=== PATIENT | female | born 1935 | race Hispanic/Latino ===

== ENCOUNTER 2018-03-04 14:24 | Observation (INO) | payer MEDICARE ==
--- NOTE | 2018-03-04 14:51 | ED PDOC ---
HPI: General Adult Time Seen by Provider: 03/04/18 14:28 Chief Complaint (Nursing): Weakness/Neurological Deficit Chief Complaint (Provider): Weakness History Per: Patient History/Exam Limitations: no limitations Additional Complaint(s): 82 year old female presents to the ED via EMS from the urgent care for a low heart rate of 39. Patient states for the last week, she has been feeling generalized weakness and lightheadedness. Denies CP or SOB. She state she took her vitals at home and had a blood pressure of 144/60 and heart rate of 42 prompting urgent care visit from which she was transferred to this ED. Patient indicates she had blood work done on Feb 26 and everything was normal. She also brought paperwork from vitals which were taken on Feb 24 indicated pulse was 40. She reports her heart rate fluctuates. Patient takes amlodipine and HCTZ. PMD: in [facility] Past Medical History Reviewed: Historical Data, Nursing Documentation, Vital Signs Vital Signs: Last Vital Signs Temp 98.4 F 03/04/18 14:27 Pulse 76 03/04/18 15:03 Resp 20 03/04/18 14:27 BP 140/99 H 03/04/18 14:27 Pulse Ox 98 03/04/18 15:03 - Medical History PMH: HTN, Hypercholesterolemia - Surgical History Surgical History: No Surg Hx - Family History Family History: States: Unknown Family Hx - Social History Current smoker - smoking cessation education provided: No Alcohol: None Drugs: Denies - Allergies Allergies/Adverse Reactions: Allergies Allergy/AdvReac Type Severity Reaction Status Date / Time ciprofloxacin [From Cipro] Allergy RASH Verified 03/04/18 14:27 nitrofurantoin Allergy RASH Verified 03/04/18 14:27 [From Macrobid] Review of Systems ROS Statement: Except As Marked, All Systems Reviewed And Found Negative Constitutional: Positive for: Weakness Cardiovascular: Negative for: Chest Pain Respiratory: Negative for: Shortness of Breath Neurological: Positive for: Other (Mild light headedness) Physical Exam - Reviewed Nursing Documentation Reviewed: Yes Vital Signs Reviewed: Yes - Physical Exam Appears: Positive for: Non-toxic, No Acute Distress Head Exam: Positive for: ATRAUMATIC, NORMOCEPHALIC Skin: Positive for: Normal Color, Warm, Dry Eye Exam: Positive for: Normal appearance Neck: Positive for: Normal, Painless ROM Cardiovascular/Chest: Positive for: Regular Rate, Rhythm. Negative for: Murmur Respiratory: Positive for: Normal Breath Sounds. Negative for: Wheezing, Respiratory Distress Extremity: Positive for: Normal ROM Neurologic/Psych: Positive for: Alert, Oriented. Negative for: Motor/Sensory Deficits - Laboratory Results Result Diagrams: 03/04/18 14:52 03/04/18 14:52 - ECG ECG Rhythm: Positive for: Sinus Rhythm (normal), Premature Ventricular Contraction. Negative for: ST/T Changes Rate: 76 O2 Sat by Pulse Oximetry: 98 (RA) Pulse Ox Interpretation: Normal Medical Decision Making Medical Decision Making: Initial Impression: Generalized weakness Initial Plan: --ECG --CMP --TSH --Troponin --ED urine dipstick --CBC --PTT --Prothrombin time --Chest X-ray --Urinalysis Accession No. : [id number] Patient Name / ID : ATIYA Cueva / [id number] Exam Date : 03/04/2018 14:36:19 ( Approved ) Study Comment : Sex / Age : F / 82Y Creator : Abhi Westbrook MD Dictator : Abhi Westbrook MD Site Acquisition Specialist : Mobile Therapist : Abhi Westbrook MD Approver2 : Report Date : 03/04/2018 14:59:34 My Comment : Date of service: 03/04/2018 HISTORY: Bradycardia COMPARISON: No prior. FINDINGS: LUNGS: Hypoventilatory changes are seen at the lung paul as well as mild interstitial change. Retrocardiac hiatal hernia is suspected. Aorta is mildly uncoiled. No pneumothorax is seen. No effusion is noted. PLEURA: No significant pleural effusion identified, no pneumothorax apparent. CARDIOVASCULAR: Normal. OSSEOUS STRUCTURES: No significant abnormalities. VISUALIZED UPPER ABDOMEN: Normal. OTHER FINDINGS: None. IMPRESSION: Limited study. No appreciable focal infiltrate or CHF. Scribe Attestation: Documented by Bennie Camara acting as a scribe for Sivan Dinh MD. Provider Scribe Attestation: All medical record entries made by the Scribe were at my direction and personally dictated by me. I have reviewed the chart and agree that the record accurately reflects my personal performance of the history, physical exam, medical decision making, and the department course for this patient. I have also personally directed, reviewed, and agree with the discharge instructions and disposition. Disposition - Clinical Impression Clinical Impression: Symptomatic bradycardia - Patient ED Disposition Is Patient to be Admitted: Yes - Disposition Disposition Time: 15:56 Condition: STABLE Forms: RigUp (Bengali) - Pt Status Changed To: Hospital Disposition Of: Observation - POA Present On Arrival: None
--- NOTE | 2018-03-04 15:01 | RAD ---
Date of service: 03/04/2018 HISTORY: Bradycardia COMPARISON: No prior. FINDINGS: LUNGS: Hypoventilatory changes are seen at the lung paul as well as mild interstitial change. Retrocardiac hiatal hernia is suspected. Aorta is mildly uncoiled. No pneumothorax is seen. No effusion is noted. PLEURA: No significant pleural effusion identified, no pneumothorax apparent. CARDIOVASCULAR: Normal. OSSEOUS STRUCTURES: No significant abnormalities. VISUALIZED UPPER ABDOMEN: Normal. OTHER FINDINGS: None. IMPRESSION: Limited study. No appreciable focal infiltrate or CHF.
[2018-03-04 15:04] LABS: INR 0.9; PROTHROMBIN TIME 10.4 Seconds (9.8-13.1)
[2018-03-04 15:07] LABS: PARTIAL THROMBOPLASTIN TIME 34.2 Seconds (25.6-37.1)
[2018-03-04 15:11] LABS: ALBUMIN 4.3 g/dL (3.5-5.0); ALT/SGPT 27 U/L (9-52); AST/SGOT 31 U/L (14-36); BLOOD UREA NITROGEN 41 mg/dl (7-17); CALCIUM 10.1 mg/dL (8.4-10.2); GFR NON-AFRICAN AMERICAN 39
[2018-03-04 15:14] LABS: BASO # 0.1 K/uL (0.0-0.2); EOS # 0.1 K/uL (0.0-0.7); EOS % 1.4 % (0.0-4.0); HEMOGLOBIN 13.2 g/dL (12.0-16.0); LYMPH # 1.1 K/uL (1.0-4.3); LYMPH % 19.3 % (20.0-40.0); MEAN CORPUSCULAR HEMOGLOBIN 32.8 pg (27.0-31.0); MEAN CORPUSCULAR HGB CONC 34.5 g/dL (33.0-37.0); MEAN PLATELET VOLUME 9.1 fl (7.2-11.7); MONO # 0.7 K/uL (0.0-0.8); MONO % 11.9 % (0.0-10.0); NEUT # 3.7 K/uL (1.8-7.0); NEUT % 66.4 % (50.0-75.0); NRBC % 0.1 % (0.0-0.0); RBC 4.03 Mil/uL (3.80-5.20); WHITE BLOOD COUNT 5.6 K/uL (4.8-10.8)
--- NOTE | 2018-03-04 18:07 | CP.PCM.HP ---
History of Present Illness - History of Present Illness History of Present Illness: History taken from patient PMD: In [facility] Full code 82 y/o F with PMHx of controlled HTN was brought by EMS from urgent care with low heart rate. Patient states that for the past 10 days she has been feeling tired, she took her bp at home when symptoms started and her HR was around 40. Since then she has checked her VS at home multiple times and has noted that her HR has been in the 30s and 40s on different occasions. She was trying to make an appt with her Porcelain Turner and PMD in [place] but was not able to be seen soon. Today she was advised to go to the urgent care because HR was high 30s and then she was transferred here. Besides fatigue patient denies any other symptom including CP, SOB, palpitations, dizziness, changes in urination or stool. Denies vision changes. Patient is taking her meds as prescribed including BP meds and vitamins. ED course: HR 74. BP 140/99. Labs only remarkable for BUN/Creat: 41/1.3(Which patient states is chronic), Troponin x1 normal, TSH normal EKG: Sinus rhythm with occasional PVCs Present on Admission - Present on Admission Any Indicators Present on Admission: No Review of Systems - Review of Systems All systems: reviewed and no additional remarkable complaints except (those described on HPI) Past Patient History - Past Social History Smoking Status: Never Smoked Alcohol: None Drugs: Denies - CARDIAC Hx Hypercholesterolemia: Yes Hx Hypertension: Yes - PULMONARY Hx Respiratory Disorders: No - NEUROLOGICAL Hx Neurological Disorder: No - HEENT Hx HEENT Problems: No - RENAL Hx Chronic Kidney Disease: No - HEMATOLOGICAL/ONCOLOGICAL Hx Blood Disorders: No - INTEGUMENTARY Hx Dermatological Problems: No - MUSCULOSKELETAL/RHEUMATOLOGICAL Hx Musculoskeletal Disorders: Yes Hx Osteoarthritis: Yes - GASTROINTESTINAL Hx Constipation: Yes - GENITOURINARY/GYNECOLOGICAL Hx Genitourinary Disorders: No - PSYCHIATRIC Hx Psychophysiologic Disorder: No Hx Substance Use: No - SURGICAL HISTORY Hx Surgeries: Yes Hx Hysterectomy: Yes Hx Joint Replacement: Yes (Knee) - ANESTHESIA Hx Anesthesia: Yes Meds Allergies/Adverse Reactions: Allergies Allergy/AdvReac Type Severity Reaction Status Date / Time ciprofloxacin [From Cipro] Allergy RASH Verified 03/04/18 14:27 nitrofurantoin Allergy RASH Verified 03/04/18 14:27 [From Macrobid] Physical Exam - Constitutional Appears: Non-toxic, No Acute Distress - Eye Exam Eye Exam: EOMI, PERRL - ENT Exam ENT Exam: Mucous Membranes Moist - Respiratory Exam Respiratory Exam: Clear to Auscultation Bilateral, NORMAL BREATHING PATTERN. absent: Decreased Breath Sounds, Rales, Rhonchi, Wheezes, Respiratory Distress - Cardiovascular Exam Cardiovascular Exam: Irregular Rhythm, +S1, +S2. absent: Gallop, Systolic Murmur - GI/Abdominal Exam GI & Abdominal Exam: Normal Bowel Sounds, Soft. absent: Distended, Guarding, Rebound, Rigid, Tenderness - Extremities Exam Extremities exam: Positive for: normal capillary refill. Negative for: calf tenderness, pedal edema Additional comments: B?L toe deformities - Neurological Exam Neurological exam: Alert, Oriented x3 - Psychiatric Exam Psychiatric exam: Normal Affect, Normal Mood - Skin Skin Exam: Intact, Normal Color, Warm Results - Vital Signs Recent Vital Signs: Last Vital Signs Temp 98.4 F 03/04/18 14:27 Pulse 74 03/04/18 17:42 Resp 17 03/04/18 17:42 BP 132/54 L 03/04/18 17:42 Pulse Ox 96 03/04/18 17:42 - Labs Result Diagrams: 03/04/18 14:52 03/04/18 14:52 Labs: Laboratory Results - last 24 hr 03/04/18 03/04/18 03/04/18 14:52 14:52 14:52 WBC 5.6 RBC 4.03 Hgb 13.2 Hct 38.3 MCV 95.0 MCH 32.8 H MCHC 34.5 RDW 13.0 Plt Count 237 MPV 9.1 Neut % (Auto) 66.4 Lymph % (Auto) 19.3 L [place] % (Auto) 11.9 H Eos % (Auto) 1.4 Baso % (Auto) 1.0 Neut # (Auto) 3.7 Lymph # (Auto) 1.1 [place] # (Auto) 0.7 Eos # (Auto) 0.1 Baso # (Auto) 0.1 PT 10.4 INR 0.9 APTT 34.2 Sodium 138 Potassium 4.4 Chloride 103 Carbon Dioxide 26 Anion Gap 13 BUN 41 H Creatinine 1.3 H Est GFR ( Amer) 48 Est GFR (Non-Af Amer) 39 Random Glucose 94 Calcium 10.1 Phosphorus Magnesium Total Bilirubin 0.5 AST 31 ALT 27 Alkaline Phosphatase 94 Troponin I < 0.0120 Total Protein 8.8 H Albumin 4.3 Globulin 4.5 H Albumin/Globulin Ratio 1.0 TSH 3rd Generation 0.70 03/04/18 17:25 WBC RBC Hgb Hct MCV MCH MCHC RDW Plt Count MPV Neut % (Auto) Lymph % (Auto) [place] % (Auto) Eos % (Auto) Baso % (Auto) Neut # (Auto) Lymph # (Auto) [place] # (Auto) Eos # (Auto) Baso # (Auto) PT INR APTT Sodium Potassium Chloride Carbon Dioxide Anion Gap BUN Creatinine Est GFR ( Amer) Est GFR (Non-Af Amer) Random Glucose Calcium Phosphorus 4.5 Magnesium 2.3 Total Bilirubin AST ALT Alkaline Phosphatase Troponin I Total Protein Albumin Globulin Albumin/Globulin Ratio TSH 3rd Generation Assessment & Plan - Assessment and Plan (Free Text) Assessment: Intermittent symptomatic bradycardia Acute HR dropping to 30s occasionally +Fatigue EKG sinus rhythm with occasional PVC Admit to tele Cardiac monitoring EP Consult Dr Johnson. 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
[2018-03-04 20:14] LABS: SQUAMOUS EPITHIAL 2 /hpf (0-5); URINE BILIRUBIN NEGATIVE (NEGATIVE); URINE BLOOD NEGATIVE (NEGATIVE); URINE CLARITY CLEAR (Clear); URINE COLOR STRAW (YELLOW); URINE GLUCOSE (UA) NEG (Normal); URINE LEUKOCYTE ESTERASE NEG Leu/uL (Negative); URINE PROTEIN NEGATIVE (NEGATIVE); URINE UROBILINOGEN 0.2-1.0 mg/dL (0.2-1.0)
[2018-03-05 01:06] VITALS: RESP 18
[2018-03-05 05:15] VITALS: TEMP 97.8
[2018-03-05 05:33] LABS: HEMOGLOBIN 12.2 g/dL (12.0-16.0); MEAN CELL VOLUME 95.3 fl (81.0-99.0); MEAN CORPUSCULAR HEMOGLOBIN 32.7 pg (27.0-31.0); MEAN CORPUSCULAR HGB CONC 34.3 g/dL (33.0-37.0); RBC 3.72 Mil/uL (3.80-5.20); WHITE BLOOD COUNT 4.1 K/uL (4.8-10.8)
[2018-03-05 06:04] LABS: ALBUMIN 3.8 g/dL (3.5-5.0); CALCIUM 9.9 mg/dL (8.4-10.2)
--- NOTE | 2018-03-05 06:41 | CARD ---
APPROVED REPORT Date of service: 03/04/2018 EKG Measurement Heart [id number] <Conclusion> Sinus rhythm with occasional premature ventricular complexes Otherwise normal ECG
[2018-03-05 08:23] VITALS: BP 134/68; O2SAT 96
[2018-03-05] MEDS ORDERED: Enoxaparin 30 mg Syringe SC SCH (09:00)
[2018-03-05] MEDS ORDERED: Cholecalciferol 1,000 INTLU TAB PO SCH (09:00)
--- NOTE | 2018-03-05 09:35 | CP.PCM.PN ---
Objective - Vital Signs/Intake and Output Vital Signs (last 24 hours): Temp Pulse Resp BP Pulse Ox 97.8 F 63 18 134/68 96 03/05/18 08:22 03/05/18 08:24 03/05/18 08:22 03/05/18 08:24 03/05/18 08:22 - Medications Medications: Current Medications Amlodipine Besylate (Norvasc) 10 mg PO DAILY [facility] Last Admin: 03/05/18 08:24 Dose: 10 mg Ascorbic Acid (Vitamin C 250 Mg Tab) 250 mg PO BID [facility] Last Admin: 03/05/18 08:26 Dose: 250 mg Atorvastatin Calcium (Lipitor) 80 mg PO DAILY [facility] Last Admin: 03/05/18 08:27 Dose: 80 mg Cholecalciferol (Vitamin D) 1,000 intlu PO DAILY [facility] Last Admin: 03/05/18 08:27 Dose: 1,000 intlu Docusate Sodium (Colace) 100 mg PO BID [facility] Last Admin: 03/05/18 08:33 Dose: 100 mg Enoxaparin Sodium (Lovenox) 30 mg SC DAILY [facility] PRN Reason: Protocol Last Admin: 03/05/18 08:23 Dose: 30 mg Famotidine (Pepcid) 40 mg PO HS [facility] Last Admin: 03/04/18 22:15 Dose: 40 mg Hydrochlorothiazide (Hydrodiuril) 25 mg PO DAILY [facility] Last Admin: 03/05/18 08:27 Dose: 25 mg - Labs Labs: 03/05/18 04:20 03/05/18 04:20 PT 10.4 Seconds (9.8-13.1) 03/04/18 14:52 INR 0.9 03/04/18 14:52 APTT 34.2 Seconds (25.6-37.1) 03/04/18 14:52
[2018-03-05 09:59] VITALS: PULSE 70
--- NOTE | 2018-03-05 12:05 | CP.PCM.DIS ---
<Chema Sanders - Last Filed: 03/05/18 13:46> Provider - Provider Date of Admission: 03/04/18 17:54 Attending physician: Susan Pendleton DO Time Spent in preparation of Discharge (in minutes): 20 Diagnosis - Discharge Diagnosis (1) Symptomatic bradycardia Status: Acute Hospital Course - Lab Results Lab Results: Most Recent Lab Values WBC 4.1 K/uL (4.8-10.8) L 03/05/18 04:20 RBC 3.72 Mil/uL (3.80-5.20) L 03/05/18 04:20 Hgb 12.2 g/dL (12.0-16.0) 03/05/18 04:20 Hct 35.5 % (34.0-47.0) 03/05/18 04:20 MCV 95.3 fl (81.0-99.0) 03/05/18 04:20 MCH 32.7 pg (27.0-31.0) H 03/05/18 04:20 MCHC 34.3 g/dL (33.0-37.0) 03/05/18 04:20 RDW 13.0 % (11.5-14.5) 03/05/18 04:20 Plt Count 234 K/uL (130-400) 03/05/18 04:20 MPV 9.1 fl (7.2-11.7) 03/04/18 14:52 Neut % (Auto) 66.4 % (50.0-75.0) 03/04/18 14:52 Lymph % (Auto) 19.3 % (20.0-40.0) L 03/04/18 14:52 [place] % (Auto) 11.9 % (0.0-10.0) H 03/04/18 14:52 Eos % (Auto) 1.4 % (0.0-4.0) 03/04/18 14:52 Baso % (Auto) 1.0 % (0.0-2.0) 03/04/18 14:52 Neut # (Auto) 3.7 K/uL (1.8-7.0) 03/04/18 14:52 Lymph # (Auto) 1.1 K/uL (1.0-4.3) 03/04/18 14:52 [place] # (Auto) 0.7 K/uL (0.0-0.8) 03/04/18 14:52 Eos # (Auto) 0.1 K/uL (0.0-0.7) 03/04/18 14:52 Baso # (Auto) 0.1 K/uL (0.0-0.2) 03/04/18 14:52 PT 10.4 Seconds (9.8-13.1) 03/04/18 14:52 INR 0.9 03/04/18 14:52 APTT 34.2 Seconds (25.6-37.1) 03/04/18 14:52 Sodium 139 mmol/l (132-148) 03/05/18 04:20 Potassium 3.6 MMOL/L (3.6-5.0) 03/05/18 04:20 Chloride 106 mmol/L (98-107) 03/05/18 04:20 Carbon Dioxide 29 mmol/L (22-30) 03/05/18 04:20 Anion Gap 8 (10-20) L 03/05/18 04:20 BUN 38 mg/dl (7-17) H 03/05/18 04:20 Creatinine 1.3 mg/dl (0.7-1.2) H 03/05/18 04:20 Est GFR ( Amer) 48 03/05/18 04:20 Est GFR (Non-Af Amer) 39 03/05/18 04:20 Random Glucose 98 mg/dL (65-105) 03/05/18 04:20 Calcium 9.9 mg/dL (8.4-10.2) 03/05/18 04:20 Phosphorus 4.5 mg/dl (2.5-4.5) 03/04/18 17:25 Magnesium 2.3 MG/DL (1.6-2.3) 03/04/18 17:25 Total Bilirubin 0.4 mg/dl (0.2-1.3) 03/05/18 04:20 AST 38 U/L (14-36) H D 03/05/18 04:20 ALT 26 U/L (9-52) 03/05/18 04:20 Alkaline Phosphatase 73 U/L (38-126) 03/05/18 04:20 Troponin I < 0.0120 ng/mL (0.00-0.120) 03/04/18 14:52 Total Protein 7.6 G/DL (6.3-8.2) 03/05/18 04:20 Albumin 3.8 g/dL (3.5-5.0) 03/05/18 04:20 Globulin 3.8 gm/dL (2.2-3.9) 03/05/18 04:20 Albumin/Globulin Ratio 1.0 (1.0-2.1) 03/05/18 04:20 TSH 3rd Generation 0.70 mIU/ML (0.46-4.68) 03/04/18 14:52 Urine Color Straw (YELLOW) 03/04/18 20:08 Urine Clarity Clear (Clear) 03/04/18 20:08 Urine pH 6.0 (5.0-8.0) 03/04/18 20:08 Ur Specific [place] 1.010 (1.003-1.030) 03/04/18 20:08 Urine Protein Negative mg/dL (NEGATIVE) 03/04/18 20:08 Urine Glucose (UA) Neg mg/dL (Normal) 03/04/18 20:08 Urine Ketones Negative mg/dL (NEGATIVE) 03/04/18 20:08 Urine Blood Negative (NEGATIVE) 03/04/18 20:08 Urine Nitrate Negative (NEGATIVE) 03/04/18 20:08 Urine Bilirubin Negative (NEGATIVE) 03/04/18 20:08 Urine Urobilinogen 0.2-1.0 mg/dL (0.2-1.0) 03/04/18 20:08 Ur Leukocyte Esterase Neg Marguerite/uL (Negative) 03/04/18 20:08 Urine RBC (Auto) 2 /hpf (0-3) 03/04/18 20:08 Urine Microscopic WBC < 1 /hpf (0-5) 03/04/18 20:08 Ur Squamous Epith Cells 2 /hpf (0-5) 03/04/18 20:08 - Hospital Course Hospital Course: Pt is a 82 yo f with pmh of HTN was sent from doctor due to symptomatic bradycardia. Pt was admitted for bradycardia managment. Since pt was admitted her heart rate over 60, and stable. EKG WNL except premature ventricular complexes. Trop x1 neg, labs wnl, Pt vitals sign are WNL, stable, Pt have no complain no symptomatic bradycardia occured since pt admission. cardiology was consulted. Pt state that she want to be treated by her tipple engineer/ electrophyiologist in [place], She already made appointment to see him today. Pt want to be discharged home. Pt was advised if she feel dizzy, fatigue, sob, chest pain, weak, or any symptoms of concern to go to Closest ER Discharge Exam - Head Exam Head Exam: ATRAUMATIC, NORMOCEPHALIC - Eye Exam Eye Exam: EOMI, Normal appearance, PERRL Pupil Exam: NORMAL ACCOMODATION, PERRL - ENT Exam ENT Exam: Normal Exam - Respiratory Exam Respiratory Exam: Clear to PA & Lateral, NORMAL BREATHING PATTERN, UNREMARKABLE - Cardiovascular Exam Cardiovascular Exam: REGULAR RHYTHM, +S1, +S2 - GI/Abdominal Exam GI & Abdominal Exam: Normal Bowel Sounds, Unremarkable - Extremities Exam Extremities exam: full ROM - Back Exam Back exam: absent: CVA tenderness (L), CVA tenderness (R) - Neurological Exam Neurological exam: Alert, CN II-XII Intact, Oriented x3 - Psychiatric Exam Psychiatric exam: Normal Affect, Normal Mood - Skin Skin Exam: Dry, Intact, Normal Color, Warm Discharge Plan - Follow Up Plan Condition: STABLE Disposition: HOME/ ROUTINE Patient education suggested?: Yes Instructions: Bradycardia (DC) Additional Instructions: ff up with own Cardio today kade if there is recurrence of sxs , return to the ED or the nearest hosp <Jannette Osman Henrietta - Last Filed: 03/05/18 18:59> Provider - Provider Date of Admission: 03/04/18 17:54 Attending physician: Susan Pendleton DO Hospital Course - Lab Results Lab Results: Most Recent Lab Values WBC 4.1 K/uL (4.8-10.8) L 03/05/18 04:20 RBC 3.72 Mil/uL (3.80-5.20) L 03/05/18 04:20 Hgb 12.2 g/dL (12.0-16.0) 03/05/18 04:20 Hct 35.5 % (34.0-47.0) 03/05/18 04:20 MCV 95.3 fl (81.0-99.0) 03/05/18 04:20 MCH 32.7 pg (27.0-31.0) H 03/05/18 04:20 MCHC 34.3 g/dL (33.0-37.0) 03/05/18 04:20 RDW 13.0 % (11.5-14.5) 03/05/18 04:20 Plt Count 234 K/uL (130-400) 03/05/18 04:20 MPV 9.1 fl (7.2-11.7) 03/04/18 14:52 Neut % (Auto) 66.4 % (50.0-75.0) 03/04/18 14:52 Lymph % (Auto) 19.3 % (20.0-40.0) L 03/04/18 14:52 [place] % (Auto) 11.9 % (0.0-10.0) H 03/04/18 14:52 Eos % (Auto) 1.4 % (0.0-4.0) 03/04/18 14:52 Baso % (Auto) 1.0 % (0.0-2.0) 03/04/18 14:52 Neut # (Auto) 3.7 K/uL (1.8-7.0) 03/04/18 14:52 Lymph # (Auto) 1.1 K/uL (1.0-4.3) 03/04/18 14:52 [place] # (Auto) 0.7 K/uL (0.0-0.8) 03/04/18 14:52 Eos # (Auto) 0.1 K/uL (0.0-0.7) 03/04/18 14:52 Baso # (Auto) 0.1 K/uL (0.0-0.2) 03/04/18 14:52 PT 10.4 Seconds (9.8-13.1) 03/04/18 14:52 INR 0.9 03/04/18 14:52 APTT 34.2 Seconds (25.6-37.1) 03/04/18 14:52 Sodium 139 mmol/l (132-148) 03/05/18 04:20 Potassium 3.6 MMOL/L (3.6-5.0) 03/05/18 04:20 Chloride 106 mmol/L (98-107) 03/05/18 04:20 Carbon Dioxide 29 mmol/L (22-30) 03/05/18 04:20 Anion Gap 8 (10-20) L 03/05/18 04:20 BUN 38 mg/dl (7-17) H 03/05/18 04:20 Creatinine 1.3 mg/dl (0.7-1.2) H 03/05/18 04:20 Est GFR ( Amer) 48 03/05/18 04:20 Est GFR (Non-Af Amer) 39 03/05/18 04:20 Random Glucose 98 mg/dL (65-105) 03/05/18 04:20 Calcium 9.9 mg/dL (8.4-10.2) 03/05/18 04:20 Phosphorus 4.5 mg/dl (2.5-4.5) 03/04/18 17:25 Magnesium 2.3 MG/DL (1.6-2.3) 03/04/18 17:25 Total Bilirubin 0.4 mg/dl (0.2-1.3) 03/05/18 04:20 AST 38 U/L (14-36) H D 03/05/18 04:20 ALT 26 U/L (9-52) 03/05/18 04:20 Alkaline Phosphatase 73 U/L (38-126) 03/05/18 04:20 Troponin I < 0.0120 ng/mL (0.00-0.120) 03/04/18 14:52 Total Protein 7.6 G/DL (6.3-8.2) 03/05/18 04:20 Albumin 3.8 g/dL (3.5-5.0) 03/05/18 04:20 Globulin 3.8 gm/dL (2.2-3.9) 03/05/18 04:20 Albumin/Globulin Ratio 1.0 (1.0-2.1) 03/05/18 04:20 TSH 3rd Generation 0.70 mIU/ML (0.46-4.68) 03/04/18 14:52 Urine Color Straw (YELLOW) 03/04/18 20:08 Urine Clarity Clear (Clear) 03/04/18 20:08 Urine pH 6.0 (5.0-8.0) 03/04/18 20:08 Ur Specific [place] 1.010 (1.003-1.030) 03/04/18 20:08 Urine Protein Negative mg/dL (NEGATIVE) 03/04/18 20:08 Urine Glucose (UA) Neg mg/dL (Normal) 03/04/18 20:08 Urine Ketones Negative mg/dL (NEGATIVE) 03/04/18 20:08 Urine Blood Negative (NEGATIVE) 03/04/18 20:08 Urine Nitrate Negative (NEGATIVE) 03/04/18 20:08 Urine Bilirubin Negative (NEGATIVE) 03/04/18 20:08 Urine Urobilinogen 0.2-1.0 mg/dL (0.2-1.0) 03/04/18 20:08 Ur Leukocyte Esterase Neg Marguerite/uL (Negative) 03/04/18 20:08 Urine RBC (Auto) 2 /hpf (0-3) 03/04/18 20:08 Urine Microscopic WBC < 1 /hpf (0-5) 03/04/18 20:08 Ur Squamous Epith Cells 2 /hpf (0-5) 03/04/18 20:08 Attending/Attestation - Attestation I have personally seen and examined this patient.: Yes I have fully participated in the care of the patient.: Yes I have reviewed all pertinent clinical information, including history, physical exam and plan: Yes Notes (Text): Ligheadedness/Bradycardic episode at home - pt is now asymptomatic - no further bradycardia on Tele monitoring - Cardio consulted - Dr Butler and step down specialist consulted. Pt seen by Dr Yao - Pt refused to see step down specialist and would like to see her own Cardio at [facility] and if EP study or pacemaker is needed , she would like to have this done in [facility]. 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
--- NOTE | 2018-03-05 18:14 | CARD ---
APPROVED REPORT Date of service: 03/05/2018 EXAM: Two-dimensional and M-mode echocardiogram with Doppler and color Doppler. Other Information Quality : GoodRhythm : Bradycardia INDICATION Abnormal EKG/Arrhythmia 2D DIMENSIONS IVSd0.57 (0.7-1.1cm)LVDd4.79 (3.9-5.9cm) LVOT Diameter1.65 (1.8-2.4cm)PWd0.87 (0.7-1.1cm) IVSs1.04 (0.8-1.2cm)LVDs3.26 (2.5-4.0cm) FS (%) 32.0 %PWs1.09 (0.8-1.2cm) M-Mode DIMENSIONS Left Atrium (MM)5.66 (2.5-4.0cm)IVSd0.84 (0.7-1.1cm) Aortic Root3.19 (2.2-3.7cm)Aortic Cusp Exc.2.22 (1.5-2.0cm) PWd0.84 (0.7-1.1cm)IVSs1.16 cm FS (%) 41 %LVDs3.69 (2.0-3.8cm) PWs1.19 cm Aortic Valve AoV Peak Untwiacu294.4cm/sAoV VTI33.0cmAO Peak GR.10mmHg LVOT Peak Bujlkpuz353.8cm/sLVOT VTI26.33cmAO Mean GR.5mmHg HOWARD (VMAX)1.04kl0LSJ (VTI)1.07cm2 Mitral Valve MV E Zvooalfh13.5cm/sMV DECEL [id number] A Xqdptcoa59.8cm/s MV SIN50pfJ/A ratio1.1MVA (PHT)4.11cm2 TDI Lateral E' Peak V10.10cm/sMedial E' Peak V7.66cm/sE/Lateral E'7.7 E/Medial E'10.1 Pulmonary Valve PV Peak Mhdganpi46.3cm/s Tricuspid Valve TR Peak Zcvbqpik875iz/sRAP [id number] Peak Gr.26mmHg [id number] LEFT VENTRICLE The left ventricle is normal size. There is normal left ventricular wall thickness. The left ventricular systolic function is normal. The estimated ejection fraction is 60-65% No regional wall motion abnormalities noted.. The left ventricular diastolic function is normal. No left ventricle thrombus noted on this study. There is no ventricular septal defect visualized. There is no mass noted in the left ventricle. RIGHT VENTRICLE The right ventricle is normal size. There is normal right ventricular wall thickness. The right ventricular systolic function is normal. ATRIA The left atrium size is moderately dilated The right atrium size is normal. The interatrial septum is intact with no evidence for an atrial septal defect. AORTIC VALVE The aortic valve is normal in structure. No aortic regurgitation is present. There is no aortic valvular stenosis. MITRAL VALVE The mitral valve is normal in structure. There is no mitral valve stenosis. There is no mitral valve regurgitation noted. TRICUSPID VALVE The tricuspid valve is normal in structure. There is mild tricuspid valve regurgitation noted. PASP mildly elevated PULMONIC VALVE The pulmonary valve is normal in structure. There is mild pulmonic valvular regurgitation. GREAT VESSELS The aortic root is normal in size. The ascending aorta is normal in size. The pulmonary artery is normal. The IVC is normal in size and collapses >50% with inspiration. PERICARDIAL EFFUSION There is no pericardial effusion. <Conclusion> Mild TR/PI with mild pulmoanry hypertension Dilated left atrium Normal LV function The estimated ejection fraction is 60-65%
--- NOTE | 2018-03-05 22:57 | CON ---
DATE: 03/05/2018 REASON FOR CONSULTATION: Fatigue and sinus bradycardia. HISTORY OF PRESENT ILLNESS: The patient is an 82-year-old female who has a history of hypertension and hyperlipidemia, on amlodipine, atorvastatin and hydrochlorothiazide, presented because of fatigue. [place] she felt fatigue but no dizziness or syncope and when she took her blood pressure, she noticed that the heart rate was 40. She contacted her math professor in advised her to go to urgent care, and from the urgent care she was transferred to the ER after she was found to have a heart rate of 39 beats per minute. The patient denies any palpitation and has no known prior thyroid condition. SOCIAL HISTORY: The patient is nonsmoker. She is a social drinker. She is retried. 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 MEDICATIONS: Current medications are hydrochlorothiazide 25 mg once daily, Lipitor 80 mg once daily, Lovenox 30 mg subcutaneously once daily, Norvasc 10 mg once a day, Pepcid 20 mg p.o. at bedtime, vitamin C 250 mg twice a day. REVIEW OF SYSTEMS: No retrosternal chest pain. No palpitation. No dizziness or syncope. PHYSICAL EXAMINATION: GENERAL: The patient is an elderly female who does not appear to be in acute distress. VITAL SIGNS: Blood pressure 138/68, heart rate 66, temperature 97.8, and respiration 18. HEENT: Normocephalic. NECK: No JVD. CHEST: Clear. HEART: S1, S2 are regular. EXTREMITIES: No edema. LABORATORY DATA: Today's hemoglobin and hematocrit 12.2 and 35.5, white count 4.1, platelet count 234,000. SMA-7: Sodium 139, potassium 3.6, chloride 106, CO2 of 29, glucose 98, BUN 38, and creatinine 1.3. One set of troponin is negative. TSH level is 0.7, within normal limits. EKG reveals sinus rhythm with occasional PVCs, heart rate of 76. ASSESSMENT: 1. Sinus bradycardia on admission and fatigue. 2. Hypertension. 3. Hyperlipidemia. RECOMMENDATIONS: Continue current hydrochlorothiazide 25 mg once daily, Lipitor 80 mg once daily, subcutaneous Lovenox 30 mg once a day, Norvasc 10 mg once a day, Pepcid 40 mg p.o. once a day. I have reviewed the echocardiographic study that was just performed. The patient's case was discussed with Dr. Osman, the primary physician. The patient will also be evaluated by Dr. Edvin Brown, the agronomy technician, today. So far, a pacemaker placement is not indicated. Telemetry monitoring will be continued. Bradley Yao MD
== END 2018-03-05 13:14 | disposition home or self-care (01) ==
LOC: H.ER 14:24 → H.ERHOLD 17:54 → H.TEL 21:51
PROVIDERS: ADMIT Student in an Organized Health Care Education/Training Program; ATTEND Student in an Organized Health Care Education/Training Program
DX: R00.1 Bradycardia, unspecified (principal); I49.3 Ventricular premature depolarization; Z90.710 Acquired absence of both cervix and uterus; Z96.659 Presence of unspecified artificial knee joint; K59.00 Constipation, unspecified; M19.90 Unspecified osteoarthritis, unspecified site; R79.89 Other specified abnormal findings of blood chemistry; E78.00 Pure hypercholesterolemia, unspecified; E78.5 Hyperlipidemia, unspecified; I10 Essential (primary) hypertension
CPT/HCPCS: 36415; 71045; 80053; 81003; 83735; 84100; 84443; 84484; 85025; 85027; 85610; 85730; 93005; 93306; 99285; G0378; J1650